=== PATIENT | female | born 1995 | race Caucasian/White ===

== ENCOUNTER 2019-06-22 17:23 | Outpatient (CLI) | payer OTHER ==
[2019-06-22 17:41] LABS: BASOPHILS # (AUTO) 0.1 10^3/uL (0.0-0.1); BASOPHILS % (AUTO) 0.7 %; EOSINOPHILS # (AUTO) 0.2 10^3/uL (0.0-0.7); EOSINOPHILS % (AUTO) 1.4 %; LYMPHOCYTES # (AUTO) 3.1 10^3/uL (1.5-3.5); LYMPHOCYTES % (AUTO) 28.5 %; MEAN CORPUSCULAR HEMOGLOBIN 28.8 pg (27.0-31.0); MEAN CORPUSCULAR HGB CONC 33.4 g/dL (32.0-36.0); MEAN CORPUSCULAR VOLUME 86.2 fL (81.0-99.0); MONOCYTES # (AUTO) 0.8 10^3/uL (0.0-1.0); MONOCYTES % (AUTO) 7.8 %; NEUTROPHILS # (AUTO) 6.6 10^3/uL (1.5-6.6); NEUTROPHILS % (AUTO) 61.2 %; PLT - PLATELET COUNT 315 10^3/uL (130-450); RED BLOOD COUNT 4.86 10^6/uL (4.20-5.40); WHITE BLOOD COUNT 10.7 x10^3/uL (4.8-10.8)
== END 2019-06-22 17:24 | disposition home or self-care (01) ==
LOC: LAB 17:23
PROVIDERS: ATTEND Obstetrics & Gynecology
DX: O02.1 Missed abortion (principal)
CPT/HCPCS: 36415; 85025; 86850; 86900; 86901

== ENCOUNTER 2019-06-23 13:14 | Day surgery (SDC) | payer OTHER ==
[2019-06-23] MEDS ORDERED: MIDAZOLAM 10 MG/2 ML VIAL IVP ONE (13:15)
[2019-06-23] MEDS ORDERED: PROPOFOL 200 MG/20 ML VIAL IVP ONE (13:15)
[2019-06-23] MEDS ORDERED: fentaNYL 100 MCG/2 ML VIAL IVP ONE (13:15)
[2019-06-23] MEDS ORDERED: ONDANSETRON 4 MG/2 ML VIAL IVP ONE (13:15)
[2019-06-23] MEDS ORDERED: KETOROLAC 30 MG/ML VIAL IVP ONE (13:15)
[2019-06-23] MEDS ORDERED: LACTATED RINGERS 1,000 ML IV ONE (13:25)
[2019-06-23] MEDS ORDERED: LIDOCAINE 1%-EPI 1:100000 20 ML MDV ONE (13:41)
--- NOTE | 2019-06-23 14:06 | ANESTHESIA ---
Pre-Anesthesia VS, & Labs - Diagnosis Missed AB - Procedure D&C Vital Signs: Temp Pulse Resp BP Pulse Ox 36.7 C 83 16 116/84 H 99 06/23/19 13:26 06/23/19 13:26 06/23/19 13:26 06/23/19 13:26 06/23/19 13:26 Height 5 ft 4.17 in Weight (kg) 76.9 kg Body Mass Index 25.2 - NPO >8 hours - Is Patient ?: Yes (missed ab) - Lab Results Lab results reviewed: Yes Home Medications and Allergies Home Medications: Ambulatory Orders Amox/Clav 500/125 [Augmentin] 1 each PO Q12H 06/23/19 No122/Iron/Folic Acid [ Multi Tablet] 06/23/19 Amox/Clav 500/125 [Augmentin] 1 each PO Q12H 06/23/19 No122/Iron/Folic Acid [ Multi Tablet] 06/23/19 Allergies/Adverse Reactions: Allergies Allergy/AdvReac Type Severity Reaction Status Date / Time No Known Drug Allergies Allergy Verified 06/23/19 08:29 Anes History & Medical History - Anesthetic History Family history of Anesthesia Complications: Denies Family history of Malignant Hyperthermia: Denies - Medical History Cardiovascular: reports: None Pulmonary: reports: None Gastrointestinal: reports: None Urinary: reports: None Neuro: reports: None Musculoskeletal: reports: None Endocrine/Autoimmune: reports: None Blood Disorders: reports: None Skin: reports: None Smoking Status: Former smoker (Quit march 2019) Psychosocial: reports: No issues indicated Exam General: Alert, Oriented x3, Cooperative, No acute distress Dental: WNL Mouth Openin Fingerbreadth Neck Mobility: Normal Mallampati classification: I Thyromental Distance: greater than 6 cm Respiratory: Lungs clear, Normal breath sounds, No respiratory distress, No accessory muscle use Cardiovascular: Regular rate, Normal S1, Normal S2 Mental/Cognitive Status: Alert/Oriented X3, Normal for patient Plan Anesthesia Type: MAC Consent for Procedure(s) Verified and Reviewed: Yes Code Status: Attempt Resuscitation ASA classification: 1-Healthy patient Is this case an emergency?: No
[2019-06-23] MEDS ORDERED: LIDOCAINE 1%-EPI 1:100000 20 ML MDV SUBQ ONE (14:12)
[2019-06-23] MEDS ORDERED: DOXYCYCLINE INJ 100 MG in SODIUM CHLORIDE 0.9% MINIBAG 100 ML IV ONE (14:21)
[2019-06-23] MEDS ORDERED: SILVER NITRATE APPLICATOR TOP ONE (14:49)
[2019-06-23] MEDS ORDERED: ONDANSETRON 4 MG/2 ML VIAL IVP PRN (14:56)
[2019-06-23] MEDS ORDERED: HYDROmorphone 0.5 MG/0.5 ML SYRINGE IVP PRN (14:56)
[2019-06-23] MEDS ORDERED: oxyCODONE 5 MG TABLET PO PRN (14:56)
--- NOTE | 2019-06-23 14:58 | OPERATIVE REPORT ---
Operative Report - General Procedure Date: 06/23/19 Planned Procedure: dilation and curettage Pre-Op Diagnosis: missed Procedure Performed: same as above Post Op Diagnosis: missed , treated - Procedure Note Primary Surgeon: Xuan Harrell Anesthesia Technique: MAC Pathology: products of conception IV Fluids (mL): 590 Estimated Blood Loss (mL): 25 Urine Output (mL): 50 Indications: missed measuring 8 wga at 11 wga from LMP, declined medical management Findings: globular anteverted uterus, mobile. tissue returned over several passes. Good cri on final pass. Uterus small, firm, minimal bleeding at conclusion. Complications: none - Other Other Information/Narrative: Procedure: After informed consent was assured, the patient was taken to the operating room where anesthesia was induced. Patient was placed in high dorsal lithotomy with Yellow fin stirrups. The patient was prepped and draped in the usual sterile fashion. Suction was set-up and tested. A surgical timeout was performed. A speculum was inserted into the vagina, and a tenaculum was placed on the anterior lip of the cervix. A paracervical block was performed with 1% lidocaine without epinephrine injected into the cervix at 2, 4, 8 and 10 oclock. Hanks dilators were used to dilate the cervical os to size 20 Sami. An 8 mm suction catheter was inserted through the cervix to the fundus, and suction was applied. Moderate POC tissue was returned. A sharp currette was then inserted to the fundus and gently withdrawn along all surfaces of the uterus, achieving good uterine cri. A final pass was then made with the suction to remove any loosened tissue. The tenaculum was removed from the cervix with good hemostasis observed; silver nitrate was applied to the tenaculum site on the right. All instruments were removed from the vagina, and a repeat bimanual exam revealed a small firm uterus and no instruments in the vaginal vault. The patient was taken to PACU in stable condition.
[2019-06-23 17:25] VITALS: BP 129/79
== END 2019-06-23 13:15 | disposition home or self-care (01) ==
LOC: SDS 13:14
PROVIDERS: ATTEND Obstetrics & Gynecology
PROC: 10D17ZZ Extraction of Products of Conception, Retained, Via Natural or Artificial Opening (ICD-10-PCS; principal; 2019-06-23 14:45)
DX: O02.1 Missed abortion (principal); Z87.891 Personal history of nicotine dependence
CPT/HCPCS: 87086